=== PATIENT | female | born 1975 | race Caucasian/White ===

== ENCOUNTER 2023-11-19 18:35 | Emergency (ER) | payer OTHER ==
[2023-11-19 20:00] LABS: Absolute Basophils 0.1 K/uL (0-0.5); Absolute Eosinophils 0.2 K/uL (0-0.5); Absolute Lymphocytes (CBC) 2.1 K/uL (0.7-4.9); Absolute Monocytes 0.7 K/uL (0.1-1.3); Basophils % 1.3 % (0-1.3); Hematocrit 38.3 % (36.0-45.0); Hemoglobin 13.1 g/dL (12.0-15.0); Lymphocytes % 20.7 % (15.3-44.8); MCHC 34.2 g/dL (32.0-36.0); MCV 93.4 fL (80-100); MPV 7.3 fL (7.6-11.3); Monocytes % 6.9 % (3.3-12.3); Neutrophils % 69.1 % (41.7-73.7); PT Prothrombin Time 11.4 SECONDS (9.4-12.5); Platelets 366 thou/uL (152-406); Protime INR 1.02
--- NOTE | 2023-11-19 20:00 | RAD REPORT ---
EXAMINATION: ONE VIEW CHEST XR CLINICAL INDICATION: DYSPNEA TECHNIQUE: Frontal chest projection is submitted. Examination is limited by patient positioning and t echnique. COMPARISON: No prior exam. FINDINGS: The lungs are well inflated and clear. The heart is normal in size. No displaced fractures identified . Cervical hardware placement. IMPRESSION: No acute intrathoracic abnormalities.
[2023-11-19 20:19] LABS: ALT/SGPT 446 U/L (13-56); AST/SGOT 267 U/L (15-37); Albumin 3.4 g/dL (3.4-5.0); Albumin/Globulin Ratio 0.8 (1.1-1.8); Alkaline Phosphatase 193 U/L (45-117); Anion Gap 7.2 mEq/L (5.0-15.0); BUN Blood Urea Nitrogen 17 mg/dL (7-18); Bicarbonate 28 mEq/L (21-32); Bilirubin Direct 0.4 mg/dL (0-0.2); Bilirubin Indirect, Calculated 0.3 mg/dL (0.2-0.8); Bilirubin Total 0.7 mg/dL (0.2-1.0); Globulin 4.3 g/dL (2.3-3.5); Glomerular Filtration Rate 79 ml/min (=/>90); Glucose Level 106 mg/dL (74-106); Lipase 23 U/L (13-75); Magnesium 1.6 mg/dL (1.6-2.4); NT PRO-BNP 27 pg/mL (<125); Potassium 4.2 mEq/L (3.5-5.1); Protein, Total 7.7 g/dL (6.4-8.2); Sodium Level 135 mEq/L (136-145); Troponin High Sensitivity < 3.0 pg/mL (<58.9)
[2023-11-19] MEDS ORDERED: CEFTRIAXONE 1000 MG/VIAL ONE (20:30)
[2023-11-19] MEDS ORDERED: NA CHLORIDE 0.9% 1,000 ML ONE (20:30)
[2023-11-19] MEDS ORDERED: ONDANSETRON 4 MG/2 ML VIAL ONE (21:16)
--- NOTE | 2023-11-19 21:20 | RAD REPORT ---
EXAMINATION: US BILATERAL LOWER EXTREMITY VENOUS DOPPLER CLINICAL INDICATION: Pain;Swelling TECHNIQUE: Complete bilateral duplex sonography of the BILATERAL lower extremity veins was performed. The examination included compression for vein patency, color Doppler imaging and flow augmentation in response to distal compression of the distal external iliac, common femoral, femoral, popliteal, t ibial, and great and small saphenous veins. COMPARISON: No prior exam. FINDINGS: Duplex sonography testing of the veins of the BILATERAL lower extremity was performed. Color flow frederic ging shows all veins to be compressible with [id number] color filling. Pulsatile and phasic flow is present within all lower extremity deep and superficial veins examined. IMPRESSION: There is no deep vein or superficial vein thrombosis.
[2023-11-19] MEDS ORDERED: MORPHINE 4 MG/ML SYR ONE (21:51)
[2023-11-19] MEDS ORDERED: methocarbamoL 750 MG TAB ONE (21:51)
[2023-11-19] MEDS ORDERED: KETOROLAC 30 MG/ML INJ ONE (21:51)
[2023-11-19] MEDS ORDERED: DIAZEPAM 5 MG TABLET ONE (21:51)
--- NOTE | 2023-11-19 22:25 | RAD REPORT ---
EXAMINATION: CT CERVICAL SPINE WITHOUT CONTRAST HISTORY: neck pain COMPARISON: None TECHNIQUE: Multiple contiguous axial images were obtained in a CT of the cervical spine without IV co ntrast. Sagittal and coronal reformats were performed. One or more of the following dose reduction techniques were used: Automated exposure control, adjustment of the mA and kV according to patient si ze, and iterative reconstruction. Unless otherwise specified, incidental findings do not require dedicated imaging follow-up. FINDINGS: The vertebral bodies and intervertebral discs demonstrate normal height and alignment without fractu re or subluxation. Postsurgical changes of anterior fusion with hardware in place spanning C4-7. Small endplate osteophytes are present mid and lower cervical spine. Prevertebral soft tissues are m ildly thickened. The posterior facets are well aligned. Normal alignment of the skull base with the cervical spine is seen. The odontoid appears normal and the lateral masses are symmetric. The lung apices are unremarkable. IMPRESSION: Anterior fusion hardware is present spanning C3-7. No hardware complication is evident. No acute abnormality is detected.
--- NOTE | 2023-11-19 22:32 | RAD REPORT ---
EXAMINATION: CT ABDOMEN AND PELVIS WITH CONTRAST CLINICAL INDICATION: ABD PAIN TECHNIQUE: CT abdomen and pelvis was performed, after the administration of IV contrast, as per [facility] protocol. Axial, sagittal and coronal reconstructions were obtained. One or more of the following dose reduction techniques were used: Automated exposure control, adjustment of the mA and k V according to patient size, and iterative reconstruction. Unless otherwise specified, incidental findings do not require dedicated imaging follow-up. COMPARISON: None FINDINGS: LOWER CHEST: The visualized lung bases are clear. LIVER: Normal in size and contour. No focal lesion. SPLEEN: Normal size. No focal lesion. PANCREAS: No mass, ductal dilation, or vero-pancreatic fluid. ADRENALS: Normal; no mass. KIDNEYS: Normal size and contour. No hydronephrosis. GASTROINTESTINAL TRACT: No evidence of free air, significant intra-abdominal free fluid, bowel obstru ction or abscess. Moderate stool is present throughout the colon. APPENDIX: Appendix not visualized, but no inflammatory changes in region of appendix. LYMPH NODES: No lymphadenopathy. MUSCULOSKELETAL: Mild degenerative anterolisthesis of L4 on 5 is present. ADDITIONAL FINDINGS: None. IMPRESSION: No acute or concerning abnormalities seen in the abdomen or pelvis.
[2023-11-19] MEDS ORDERED: TRAMADOL HCL 50 MG TAB ONE (23:17)
[2023-11-19 23:26] LABS: Sqamous Epithelial <5 /HPF (None Seen); Urine Bacteria None Seen /HPF (<20); Urine Bilirubin NEGATIVE (Negative); Urine Blood Trace (Negative); Urine Clarity Clear (Clear); Urine Color Yellow (Yellow); Urine Culture Reflex Order NOT NEEDED; Urine Glucose NEGATIVE (Negative); Urine Ketones NEGATIVE (Negative); Urine Microscopic Reflex YN ORDER UMIC; Urine Mucus Slight /HPF (None Seen); Urine Nitrite NEGATIVE (Negative); Urine Protein TRACE (Negative); Urine Urobilinogen Normal (Normal); Urine WBC <5 /HPF (<5)
[2023-11-19 23:27] LABS: Specific Gravity > 1.030 (1.005-1.030)
--- NOTE | 2023-11-19 23:29 | ER ---
Nurse's Notes [facility] Name: Herlinda Quinteros Age: 48 yrs Sex: Female : 1975 Arrival Date: 11/19/2023 Time: 18:35 Bed 7 Private MD: Diagnosis: Neck pain after surgery, dysuria, urinary urgency, postoperative pain cervical spine, noncardiac chest pain Presentation: 11/18 19:25 Chief complaint: Patient states: Lower abdominal cramping with urinary frequency onset cm10 2-3 days ago. Pt reports that she had neck surgery last week and is now having chest pain and shortness of breath. Coronavirus screen: Client denies travel out of the [place] in the last 14 days. Ebola Screen: Patient denies travel to an Ebola-affected area in the 21 days before illness onset. No symptoms or risks identified at this time. Initial Sepsis Screen: Does the patient meet any 2 criteria? HR > 90 bpm. Does the patient have a suspected source of infection? No. Patient's initial sepsis screen is negative. Risk Assessment: Do you want to hurt yourself or someone else? Patient reports no desire to harm self or others. Onset of symptoms was November 19, 2023. 19:25 Method Of Arrival: Ambulatory cm10 19:25 Acuity: IMTIAZ 2 cm10 Triage Assessment: 19:26 General: Appears in no apparent distress. comfortable, Behavior is calm, cooperative. cm10 Neuro: No deficits noted. Level of Consciousness is awake, alert, obeys commands, Oriented to person, place, time, situation, Appropriate for age. Respiratory: No deficits noted. Airway is patent Respiratory effort is even, unlabored, Respiratory pattern is regular, symmetrical. Historical: - Allergies: 19:26 No Known Allergies; cm10 - PMHx: 19:26 None; cm10 - PSHx: 19:26 Neck; cm10 - Immunization history:: Adult Immunizations up to date. - Infectious Disease History:: Denies. - Social history:: Smoking status: Patient reports the use of cigarette tobacco products, denies chronic smoking, but will smoke occasionally, Reported history of juuling and/or vaping. - Family history:: not pertinent. Screenin:30 [facility] ED Fall Risk Assessment (Adult) History of falling in the last 3 months, br2 including since admission No falls in past 3 months (0 pts) Confusion or Disorientation No (0 pts) Intoxicated or Sedated Yes (3 pts) Impaired Gait No (0 pts) Mobility Assist Device Used Yes (1 pt) Altered Elimination No (0 pt) Score/Fall Risk Level 0 - 2 = Low Risk. Abuse screen: Denies threats or abuse. Denies injuries from another. Nutritional screening: No deficits noted. Tuberculosis screening: No symptoms or risk factors identified. Assessment: 19:30 Reassessment: Patient and/or family updated on plan of care and expected duration. Pain br2 level reassessed. Patient is alert, oriented x 3, equal unlabored respirations, skin warm/dry/pink. General: Appears uncomfortable, obese, Behavior is cooperative, anxious. Pain: Complains of pain in chest and abdomen Pain does not radiate. Pain currently is 8 out of 10 on a pain scale. Quality of pain is described as aching, pressure, Pain began after procedure Current management is with tylenol #3. Neuro: Benoit Agitation-Sedation Scale (RASS): 0 - Alert and Calm Level of Consciousness is awake, alert, obeys commands, Oriented to person, place, time, situation, Moves all extremities. Speech is normal. Cardiovascular: Reports chest pain, nausea, shortness of breath, vomiting. Respiratory: Reports shortness of breath pt states she only used incentive spirometer 2 days after procedure Airway is patent Respiratory effort is even, unlabored, Breath sounds are clear bilaterally. GI: No signs and/or symptoms were reported involving the gastrointestinal system. Abdomen is round obese. : Reports urinary frequency, hesitancy and pelvic pain with urination. EENT: No signs and/or symptoms were reported regarding the EENT system. Derm: Skin is intact, Skin is dry, Skin is normal, Skin temperature is warm incision to right neck, dressing dry and intact. Musculoskeletal: No signs and/or symptoms reported regarding the musculoskeletal system. Circulation, motion, and sensation intact. Capillary refill < 3 seconds, Range of motion: intact in all extremities. 20:30 Reassessment: No changes from previously documented assessment. Patient and/or family br2 updated on plan of care and expected duration. Pain level reassessed. Patient is alert, oriented x 3, equal unlabored respirations, skin warm/dry/pink. 21:30 Reassessment: Patient and/or family updated on plan of care and expected duration. Pain br2 level reassessed. Patient is alert, oriented x 3, equal unlabored respirations, skin warm/dry/pink. Patient states feeling better. Patient states symptoms have improved. 22:30 Reassessment: Patient and/or family updated on plan of care and expected duration. Pain br2 level reassessed. Patient is alert, oriented x 3, equal unlabored respirations, skin warm/dry/pink. Patient states feeling better. 23:15 Reassessment: Patient and/or family updated on plan of care and expected duration. Pain br2 level reassessed. Patient is alert, oriented x 3, equal unlabored respirations, skin warm/dry/pink. Pain: Complains of pain in abdomen Pain currently is 5 out of 10 on a pain scale. Vital Signs: 19:25 BP 109 / 63; Pulse 108; Resp 18; Temp 98(O); Pulse Ox 98% on R/A; Weight 108.86 kg; cm10 Height 5 ft. 7 in. ; Pain 7/10; 20:00 BP 102 / 75; Pulse 104; Resp 18 S; Pulse Ox 96% on R/A; br2 21:00 BP 111 / 66; Pulse 97; Resp 16 S; Temp 97.3(O); Pulse Ox 100% on R/A; br2 22:00 BP 124 / 80; Pulse 97; Resp 16 S; Pulse Ox 100% on R/A; br2 23:35 BP 104 / 65; Pulse 79; Resp 18 S; Pulse Ox 98% on R/A; Pain 5/10; br2 19:25 Body Mass Index 37.59 (108.86 kg, 170.18 cm) cm10 19:25 Pain Scale: Adult cm10 23:35 Pain Scale: Adult br2 Wayzata Coma Score: 22:38 Eye Response: spontaneous(4). Motor Response: obeys commands(6). Verbal Response: sp4 oriented(5). Total: 15. NIH Stroke Scale Scores: 22:38 NIHSS Score: 0 sp4 ED Course: 18:38 Patient arrived in ED. mr 19:26 Triage completed. cm10 19:27 Arm band placed on right wrist. Patient placed in an exam room, on a stretcher. cm10 19:30 Patient has correct armband on for positive identification. Placed in gown. Bed in low br2 position. Call light in reach. Side rails up X 1. Provided Education on: PLAN OF CARE. 19:35 Luis Angel Ortega MD is Attending Physician. [facility] 19:57 XRAY Chest (1 view) In Process Unspecified. EDMS 20:00 Inserted saline lock: 20 gauge in left antecubital area, using aseptic technique. Blood br2 collected. Flushed with 10 mL NS. 20:03 Tanja Stanley RN is Primary Nurse. br2 20:06 Attending Physician role handed off by Luis Angel Ortega MD sp4 20:06 Sathya Mak MD is Attending Physician. sp4 21:16 US Extremity Venous W Compression Kalen In Process Unspecified. EDMS 22:17 CT Abd/Pelvis - IV Contrast Only In Process Unspecified. EDMS 22:17 CT C Spine: CT C spine only and abdomen / pelvis In Process Unspecified. EDMS 23:34 IV discontinued, intact, bleeding controlled, No redness/swelling at site. Pressure br2 dressing applied. 23:37 No provider procedures requiring assistance completed. br2 Administered Medications: 20:37 Drug: NS 0.9% IV 1000 ml IV at 1 bolus Per protocol; 1000 mL bolus Route: IV; Rate: 1 br2 bolus; Site: right antecubital; 21:57 Follow up: Response: No adverse reaction; IV Status: Completed infusion; IV Intake: br2 1000ml 20:37 Drug: Rocephin IV 1 grams IV at per protocol once; Given slow IV push per pharmacy br2 instructions Route: IV; Rate: per protocol; Site: right antecubital; 20:45 Follow up: Response: No adverse reaction; IV Status: Completed infusion br2 20:45 Follow up: Response: No adverse reaction; IV Status: Completed infusion br2 21:48 Drug: Ondansetron IVP 4 mg IVP once; over 2 minutes Route: IVP; Site: right antecubital;br2 22:41 Follow up: Response: No adverse reaction; Nausea is decreased br2 21:56 Drug: morphine IVP or IV 4 mg IVP once over 4 mins Route: IVP; Infused Over: 4 mins; br2 Site: right antecubital; 22:41 Follow up: Response: No adverse reaction; Pain is decreased br2 21:56 Drug: Diazepam PO 5 mg PO once Route: PO; br2 22:40 Follow up: Response: No adverse reaction; Pain is decreased br2 21:56 Drug: Ketorolac IVP 30 mg IVP once Route: IVP; Site: right antecubital; br2 22:40 Follow up: Response: No adverse reaction br2 21:56 Drug: Methocarbamol PO 750 mg PO once Route: PO; br2 22:40 Follow up: Response: No adverse reaction br2 23:19 Drug: traMADol PO 100 mg PO once Route: PO; br2 23:33 Follow up: Response: Medication Administered at Departure br2 Medication: 23:33 VIS not applicable for this client. br2 Intake: 21:57 IV: 1000ml; Total: 1000ml. br2 Outcome: 23:29 Discharge ordered by . sp4 23:37 Discharged to home ambulatory, br2 23:37 Condition: good 23:37 Discharge instructions given to patient, Instructed on discharge instructions, follow up and referral plans. medication usage, Demonstrated understanding of instructions, follow-up care, medications, Prescriptions given X 1, 23:52 Patient left the ED. br2 NIH Stroke Scale - NIH Stroke Score Date: 11/19/2023 Time: 22:38 Total Score = 0 10. Dysarthria (speech clarity - read or repeat words) - 0(Normal) 11. Extinction and Inattention (visual/tactile/auditory/spatial/personal) - 0(No abnormality) 1a. Level of Consciousness (LOC) - 0(Alert) 1b. Level of Consciousness (LOC) (Month \T\ Age) - 0(Both) 1c. LOC Commands (Open \T\ Closes Eyes/[place]) - 0(Both) 2. Best Gaze (Lateral Gaze Paresis) - 0(Normal) 3. Visual Field Loss - 0(No visual loss) 4. Facial Palsy - 0(Normal) 5a. Left Arm: Motor (10-second hold) - 0(No drift) 5b. Right Arm: Motor (10-second hold) - 0(No drift) 6a. Left Leg: Motor (5-second hold - always test supine) - 0(No drift) 6b. Right Leg: Motor (5-second hold - always test supine) - 0(No drift) 7. Limb Ataxia (finger/nose \T\ heel/[place] - test with eyes open) - 0(Absent) 8. Sensory Loss (pinprick arms/legs/face) - 0(Normal) 9. Best Language: Aphasia (description/naming/reading) - 0(No aphasia) Initials: sp4 Signatures: Dispatcher [employer] EDLuis Angel Lopez MD MD cha Rivera, Rosamaria, [facility] mr Sathya Mak MD MD sp4 Nadege Garcia RN RN cm10 Tanja Stanley RN RN br2
--- NOTE | 2023-11-19 23:29 | EDPHYS ---
Physician Documentation [facility] Didi Name: Herlinda Quinteros Age: 48 yrs Sex: Female : 1975 Arrival Date: 11/19/2023 Time: 18:35 Bed 7 Private MD: ED Physician Sathya Mak HPI: 11/18 19:42 This 48 yrs old Female presents to ER via Ambulatory with complaints of amy Urinary Problem, Neck pain. 19:42 The patient or guardian complains of decreased range of motion, an injury, pain, that amy is acute. The symptoms are located on the chin, right jaw and left jaw. Onset: The symptoms/episode began/occurred 5 day(s) ago. Context: The problem was sustained at an unknown location, The neck injury/problem resulted from from unknown cause. The patient or guardian reports chest pain that is located primarily in the anterior chest wall, bilaterally. The patient presents with urinary symptoms, dysuria, frequency, hesitancy, urgency, urinary retention. Modifying factors: The symptoms are alleviated by remaining still, the symptoms are aggravated by movement, pressure, walking. 22:41 48-year-old female with history of anterior approach cervical fusion C3-C7 11/12/2023 sp4 at [facility] by Dr. Kandi Gupta. 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 Complains of neck pain diffuse upper extremity pain and incomplete urinary bladder emptying. Discharge papers states 11/12/2023 patient had dissected me cervical spinal region anterior approach with fusion insertion of spinal hardware. Neurophysiologic intraoperative monitoring.. Historical: - Allergies: 19:26 No Known Allergies; cm10 - PMHx: 19:26 None; cm10 - PSHx: 19:26 Neck; cm10 - Immunization history:: Adult Immunizations up to date. - Infectious Disease History:: Denies. - Social history:: Smoking status: Patient reports the use of cigarette tobacco products, denies chronic smoking, but will smoke occasionally, Reported history of juuling and/or vaping. - Family history:: not pertinent. ROS: 19:42 Constitutional: Negative for fever, chills, and weight loss, Eyes: Negative for injury, may pain, redness, and discharge, ENT: Negative for injury, pain, and discharge, Neck: Negative for injury, pain, and swelling, Respiratory: Negative for shortness of breath, cough, wheezing, and pleuritic chest pain, Back: Negative for injury and pain, MS/Extremity: Negative for injury and deformity, Skin: Negative for injury, rash, and discoloration, Neuro: Negative for headache, weakness, numbness, tingling, and seizure, Psych: Negative for depression, anxiety, suicide ideation, homicidal ideation, and hallucinations, Allergy/Immunology: Negative for hives, rash, and allergies, Endocrine: Negative for neck swelling, polydipsia, polyuria, polyphagia, and marked weight changes, Hematologic/Lymphatic: Negative for swollen nodes, abnormal bleeding, and unusual bruising, 19:42 Cardiovascular: Positive for chest pain, palpitations, 19:42 Respiratory: Positive for shortness of breath, 19:42 : Positive for urinary symptoms, small amounts, burning with urination, Exam: 19:42 Constitutional: This is a well developed, well nourished patient who is awake, alert, amy and in no acute distress. Head/Face: Normocephalic, atraumatic. Eyes: Pupils equal round and reactive to light, extra-ocular motions intact. Lids and lashes normal. Conjunctiva and sclera are non-icteric and not injected. Cornea within normal limits. Periorbital areas with no swelling, redness, or edema. ENT: Nares patent. No nasal discharge, no septal abnormalities noted. Tympanic membranes are normal and external auditory canals are clear. Oropharynx with no redness, swelling, or masses, exudates, or evidence of obstruction, uvula midline. Mucous membranes moist. Chest/axilla: Normal chest wall appearance and motion. Nontender with no deformity. No lesions are appreciated. Respiratory: Lungs have equal breath sounds bilaterally, clear to auscultation and percussion. No rales, rhonchi or wheezes noted. No increased work of breathing, no retractions or nasal flaring. Abdomen/GI: Soft, non-tender, with normal bowel sounds. No distension or tympany. No guarding or rebound. No evidence of tenderness throughout. Back: No spinal tenderness. No costovertebral tenderness. Full range of motion. Skin: Warm, dry with normal turgor. Normal color with no rashes, no lesions, and no evidence of cellulitis. MS/ Extremity: Pulses equal, no cyanosis. Neurovascular intact. Full, normal range of motion. Neuro: Awake and alert, GCS 15, oriented to person, place, time, and situation. Cranial nerves II-XII grossly intact. Motor strength 5/5 in all extremities. Sensory grossly intact. Cerebellar exam normal. Normal gait. 19:42 Neck: C-spine: appears grossly normal, no acute changes, ROM/movement: pain, that is mild, limited range of motion, that is mild, Meningeal signs: are not present, Kernig's sign is negative, Brudzinski's sign is negative, nuchal rigidity, is not appreciated, Lymph nodes: no appreciated lymphadenopathy, 19:42 Cardiovascular: Rate: tachycardic, actual rate is 108 bpm, Rhythm: regular, Pulses: no pulse deficits are appreciated, Heart sounds: normal, Edema: is not appreciated, JVD: is not appreciated, 19:42 Musculoskeletal/extremity: Circulation is intact in all extremities. Sensation intact. Compartment Syndrome exam of affected extremity: is normal. Weight bearing: able to fully bear weight, DVT Exam: No signs of deep vein thrombosis. no pain, no swelling, no tenderness, negative Homans' sign noted on exam, no appreciated bluish discoloration, no erythema, no increased warmth, 22:39 ECG was reviewed by the Attending Physician. EKG at 2336 normal sinus rhythm rate sp4 99 Vital Signs: 19:25 BP 109 / 63; Pulse 108; Resp 18; Temp 98(O); Pulse Ox 98% on R/A; Weight 108.86 kg; cm10 Height 5 ft. 7 in. ; Pain 7/10; 20:00 BP 102 / 75; Pulse 104; Resp 18 S; Pulse Ox 96% on R/A; br2 21:00 BP 111 / 66; Pulse 97; Resp 16 S; Temp 97.3(O); Pulse Ox 100% on R/A; br2 22:00 BP 124 / 80; Pulse 97; Resp 16 S; Pulse Ox 100% on R/A; br2 23:35 BP 104 / 65; Pulse 79; Resp 18 S; Pulse Ox 98% on R/A; Pain 5/10; br2 19:25 Body Mass Index 37.59 (108.86 kg, 170.18 cm) cm10 19:25 Pain Scale: Adult cm10 23:35 Pain Scale: Adult br2 NIH Stroke Scale Scores: 22:38 NIHSS Score: 0 sp4 Melissa Coma Score: 22:38 Eye Response: spontaneous(4). Motor Response: obeys commands(6). Verbal Response: sp4 oriented(5). Total: 15. MDM: 19:35 Patient medically screened. amy 19:35 Patient medically screened. amy 19:47 Differential diagnosis: Cervical Raiculopathy abnormal EKG, anxiety, coronary artery amy disease chest wall pain, congestive heart failure costochondritis, hiatal hernia, pancreatitis, pericarditis, unstable angina, urinary tract infection, Neck Contusion. HEART Score: History: Slightly Suspicious (0), ECG: Normal (0), Age: > 45 and < 65 years (1), Risk Factors: 1 or 2 risk factors (1), [+ Family HX] [Obesity] Troponin: < or = 1 x Normal Limit (0). The patient was not given aspirin in the Emergency Department. Not indicated due to patient's past medical history. Data reviewed: vital signs, nurses notes, lab test result(s), EKG, radiologic studies, CT scan, doppler. Consideration of Admission/Observation Escalation of care including admission/observation considered. I considered the following discharge prescriptions or medication management in the emergency department Medications were administered in the Emergency Department. See MAR. Test considered but Not performed: MRI: no cervical mri. 21:07 ED course: EXAMINATION: ONE VIEW CHEST XR CLINICAL INDICATION: DYSPNEA TECHNIQUE: sp4 Frontal chest projection is submitted. Examination is limited by patient positioning and technique. COMPARISON: No prior exam. FINDINGS: The lungs are well inflated and clear. The heart is normal in size. No displaced fractures identified. Cervical hardware placement. IMPRESSION: No acute intrathoracic abnormalities. . 22:37 ED course: EXAMINATION: US BILATERAL LOWER EXTREMITYVENOUS DOPPLER CLINICAL INDICATION: sp4 Pain;Swelling TECHNIQUE: Complete bilateral duplex sonography of the BILATERAL lower extremity veins was performed. The examination included compression for vein patency, color Doppler imaging and flow augmentation in response to distal compression of the distal external iliac, common femoral, femoral, popliteal, tibial, and great and small saphenous veins. COMPARISON: No prior exam. FINDINGS: Duplex sonography testing of the veins of the BILATERAL lower extremity was performed. Color flow imaging shows all veins to be compressible with [id number] color filling. Pulsatile and phasic flow is present within all lower extremity deep and superficial veins examined. IMPRESSION: There is no deep vein or superficial vein thrombosis.. ED course: EXAMINATION: CT CERVICAL SPINE WITHOUT CONTRAST HISTORY: neck pain COMPARISON: None TECHNIQUE: Multiple contiguous axial images were obtained in a CT of the cervical spine without IV contrast. Sagittal and coronal reformats were performed. One or more of the following dose reduction techniques were used: Automated exposure control, adjustment of the mA and kV according to patient size, and iterative reconstruction. Unless otherwise specified, incidental findings do not require dedicated imaging follow-up. FINDINGS: The vertebral bodies and intervertebral discs demonstrate normal height and alignment without fracture or subluxation. Postsurgical changes of anterior fusion with hardware in place spanning C4- 7. Small endplate osteophytes are present mid and lower cervical spine. Prevertebral soft tissues are mildly thickened. The posterior facets are well aligned. Normal alignment of the skull base with the cervical spine is seen. The odontoid appears normal and the lateral masses are symmetric. The lung apices are unremarkable. IMPRESSION: Anterior fusion hardware is present spanning C3-7. No hardware complication is evident. No acute abnormality is detected. . 22:38 ED course: EXAMINATION: CTABDOMEN AND PELVIS WITH CONTRAST CLINICAL INDICATION: ABD sp4 PAIN TECHNIQUE: CT abdomen and pelvis was performed, after the administration of IV contrast, as per department protocol. Axial, sagittal and coronal reconstructions were obtained. One or more of the following dose reduction techniques were used: Automated exposure control, adjustment of the mA and kV according to patient size, and iterative reconstruction. Unless otherwise specified, incidental findings do not require dedicated imaging follow-up. COMPARISON: None FINDINGS: LOWER CHEST: The visualized lung bases are clear. LIVER: Normal in size and contour. No focal lesion. SPLEEN: Normal size. No focal lesion. PANCREAS: No mass, ductal dilation, or vero-pancreatic fluid. ADRENALS: Normal; no mass. KIDNEYS: Normal size and contour. No hydronephrosis. GASTROINTESTINAL TRACT: No evidence of free air, significant intra-abdominal free fluid, bowel obstruction or abscess. Moderate stool is present throughout the colon. APPENDIX: Appendix not visualized, but no inflammatory changes in region of appendix. LYMPH NODES: No lymphadenopathy. MUSCULOSKELETAL: Mild degenerative anterolisthesis of L4 on 5 is present. ADDITIONAL FINDINGS: None. IMPRESSION: No acute or concerning abnormalities seen in the abdomen or pelvis. 23:32 ED course: Overall has normal neurologic exam, no sign of hardware displacement in the sp4 cervical spine. Stable for discharge home. . 11/18 19:39 Order name: Basic Metabolic Panel; Complete Time: 21:04 [facility] 11/18 19:39 Order name: CBC with Diff; Complete Time: 21:04 [facility] 11/18 19:39 Order name: LFT's; Complete Time: 21:04 [facility] 11/18 19:39 Order name: Magnesium; Complete Time: 21:04 [facility] 11/18 19:39 Order name: NT PRO-BNP; Complete Time: 21:04 [facility] 11/18 19:39 Order name: PT-INR; Complete Time: 21:04 [facility] 11/18 19:39 Order name: Troponin HS; Complete Time: 21:04 [facility] 11/18 19:39 Order name: Urinalysis w/ reflexes: get a pvr; Complete Time: 23:28 [facility] 11/18 19:39 Order name: Lipase; Complete Time: 21:04 [facility] 11/18 19:41 Order name: Urine Culture [facility] 11/18 19:39 Order name: XRAY Chest (1 view); Complete Time: 21:04 [facility] 11/18 19:39 Order name: CT Abd/Pelvis - IV Contrast Only; Complete Time: 22:39 [facility] 11/18 19:41 Order name: US Extremity Venous W Compression [place]; Complete Time: 21:25 [facility] 11/18 21:25 Order name: CT C Spine: CT C spine only and abdomen / pelvis; Complete Time: 22:39 sp4 11/18 19:39 Order name: EKG; Complete Time: 19:40 [facility] 11/18 19:39 Order name: Cardiac monitoring; Complete Time: 20:31 [facility] 11/18 19:39 Order name: EKG - Nurse/Tech; Complete Time: 22:40 [facility] 11/18 19:39 Order name: IV Saline Lock; Complete Time: 20:31 [facility] 11/18 19:39 Order name: Labs collected and sent; Complete Time: 20:31 [facility] 11/18 19:39 Order name: O2 Per Protocol; Complete Time: 20:31 [facility] 11/18 19:39 Order name: O2 Sat Monitoring; Complete Time: 20:31 [facility] EC:39 Rate is 99 beats/min. Rhythm is regular, Normal Sinus Rhythm. QRS [place] is Normal. MI sp4 interval is normal. QRS interval is normal. QT interval is normal. No Q waves. T waves are Normal. No ST changes noted. Clinical impression: Normal ECG. Interpreted by me. Reviewed by me. Administered Medications: 20:37 Drug: NS 0.9% IV 1000 ml IV at 1 bolus Per protocol; 1000 mL bolus Route: IV; Rate: 1 br2 bolus; Site: right antecubital; 21:57 Follow up: Response: No adverse reaction; IV Status: Completed infusion; IV Intake: br2 1000ml 20:37 Drug: Rocephin IV 1 grams IV at per protocol once; Given slow IV push per pharmacy br2 instructions Route: IV; Rate: per protocol; Site: right antecubital; 20:45 Follow up: Response: No adverse reaction; IV Status: Completed infusion br2 20:45 Follow up: Response: No adverse reaction; IV Status: Completed infusion br2 21:48 Drug: Ondansetron IVP 4 mg IVP once; over 2 minutes Route: IVP; Site: right antecubital;br2 22:41 Follow up: Response: No adverse reaction; Nausea is decreased br2 21:56 Drug: morphine IVP or IV 4 mg IVP once over 4 mins Route: IVP; Infused Over: 4 mins; br2 Site: right antecubital; 22:41 Follow up: Response: No adverse reaction; Pain is decreased br2 21:56 Drug: Diazepam PO 5 mg PO once Route: PO; br2 22:40 Follow up: Response: No adverse reaction; Pain is decreased br2 21:56 Drug: Ketorolac IVP 30 mg IVP once Route: IVP; Site: right antecubital; br2 22:40 Follow up: Response: No adverse reaction br2 21:56 Drug: Methocarbamol PO 750 mg PO once Route: PO; br2 22:40 Follow up: Response: No adverse reaction br2 23:19 Drug: traMADol PO 100 mg PO once Route: PO; br2 23:33 Follow up: Response: Medication Administered at Departure br2 Disposition Summary: 11/19/23 23:29 Discharge Ordered Notes: Location: Home sp4 Problem: new sp4 Symptoms: have improved sp4 Condition: Stable sp4 Diagnosis - Neck pain after surgery, dysuria, urinary urgency, postoperative pain cervical sp4 spine, noncardiac chest pain Followup: sp4 - With: Private Physician - When: 7 - 10 days - Reason: Recheck today's complaints Discharge Instructions: - Discharge Summary Sheet sp4 - Cervical Fusion, Care After sp4 Forms: - Patient Portal Instructions sp4 Prescriptions: - Tramadol 50 mg Oral tablet - take 1 tablet ORAL route every 8 hours as needed; 20 tablet; Refills: 0, sp4 Product Selection Permitted NIH Stroke Scale - NIH Stroke Score Date: 11/19/2023 Time: 22:38 Total Score = 0 10. Dysarthria (speech clarity - read or repeat words) - 0(Normal) 11. Extinction and Inattention (visual/tactile/auditory/spatial/personal) - 0(No abnormality) 1a. Level of Consciousness (LOC) - 0(Alert) 1b. Level of Consciousness (LOC) (Month \T\ Age) - 0(Both) 1c. LOC Commands (Open \T\ Closes Eyes/Engraver Tender) - 0(Both) 2. Best Gaze (Lateral Gaze Paresis) - 0(Normal) 3. Visual Field Loss - 0(No visual loss) 4. Facial Palsy - 0(Normal) 5a. Left Arm: Motor (10-second hold) - 0(No drift) 5b. Right Arm: Motor (10-second hold) - 0(No drift) 6a. Left Leg: Motor (5-second hold - always test supine) - 0(No drift) 6b. Right Leg: Motor (5-second hold - always test supine) - 0(No drift) 7. Limb Ataxia (finger/nose \T\ heel/[place] - test with eyes open) - 0(Absent) 8. Sensory Loss (pinprick arms/legs/face) - 0(Normal) 9. Best Language: Aphasia (description/naming/reading) - 0(No aphasia) Initials: sp4 Signatures: Dispatcher [employer] EDMS Luis Angel Ortega MD MD cha Potepalov, Sergey, MD MD sp4 Nadege Garcia RN RN cm10 Tanja Stanley RN RN br2 Corrections: (The following items were deleted from the chart) 19:40 19:40 Soft Tissue Neck W/Contr+CT.RAD.BRZ ordered. EDMS EDMS 19:40 19:40 Chest For PE Angio+CT.RAD.BRZ ordered. EDMS EDMS
[2023-11-20 00:49] VITALS: TEMP 97.3
[2023-11-20 00:51] VITALS: BP 104/65; O2SAT 98
--- NOTE | 2023-11-22 11:58 | EKG ---
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
--- NOTE | 2023-11-22 11:58 | EKG ---
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
== END 2023-11-19 23:52 | disposition home or self-care (01) ==
LOC: ER 18:35
DX: G89.18 Other acute postprocedural pain (principal); R07.89 Other chest pain; R30.0 Dysuria; R39.15 Urgency of urination; Z98.890 Other specified postprocedural states
CPT/HCPCS: 96361; 93005 ×2; 87088; 85025; 81001; 87086; 80048; 36415; 83735; 85610; 80076; 84484; 83690; 83880; 72125; 74177; 71045; 93970; 96375; 96374; 99284; Q9967; J2405; J7030; J0696